=== PATIENT | male | born 1990 | race Caucasian/White ===

== ENCOUNTER 2017-01-23 03:52 | Emergency (ER) | payer OTHER ==
[~2017-01-23] VITALS: Ht 170.2 cm; Wt 79.1 kg
[2017-01-23 04:02] VITALS: TEMP 36.9; Ht 170.2 cm; Wt 79.1 kg
[2017-01-23] MEDS ORDERED: PRLSR20 PO (05:37)
[2017-01-23] MEDS ORDERED: SODIUM CHLORIDE 0.9% 1000ML 1,000 ML IV STA (05:44)
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
[2017-01-23 06:51] VITALS: BP 142/88; PULSE 98; O2SAT 96
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
== END 2017-01-23 06:55 | disposition home or self-care (01) ==
LOC: C.EDA 03:55 → EDBD 03:55 → EEVIPCON 03:55 → C.EDA 06:55
DX: S29.9XXA Unspecified injury of thorax, initial encounter (principal); Y04.2XXA Assault by strike against or bumped into by another person, initial encounter; T74.11XA Adult physical abuse, confirmed, initial encounter; Y07.03 Male partner, perpetrator of maltreatment and neglect; I45.10 Unspecified right bundle-branch block; R00.0 Tachycardia, unspecified